=== PATIENT | female | born 1930 | race Caucasian/White ===

== ENCOUNTER 2016-08-13 05:56 | Inpatient (IN) | payer OTHER ==
[~2016-08-13] VITALS: Ht 170.2 cm; Wt 78.2 kg
[~2016-08-13 05:56] MED LIST: ACETAMINOPHEN-1 EAC1 PO; AMLODIPINE BESY10 MG PO; ASACOL400 MG PO; BACTRIM,SEPT1 TABLET PO; Bentyl PO; CARAFATE1 GM PO; CARAFATE100 MG/ML PO; CATAPRES0.2 MG PO; COZAAR100 MG PO; Carafate PO; Cipro PO; LIPITOR20 MG PO; LIPITOR40 MG PO; METAMUCIL PACKE1 PKT PO; METOPROLOL SUCC25 MG PO; METOPROLOL TART25 MG PO; MICROZIDE12.5 M1 PO; MIRALAX255 GM PO; Mylicon,Mylanta Gas, PO; NORVASC10 MG PO; OMEPRAZOLE40 M1 PO; Protonix PO; ROBINUL PO; Reglan PO; STOOL SOFTENER100 MG PO; ZOFRAN ODT4 MG PO; ZOFRAN4 MG PO
[2016-08-13 07:33] LABS: HEMATOCRIT 37.3 % (36.0-46.0); MCH 27.2 PG (29.0-34.0); MCHC 31.9 G/DL (30.0-36.0); MCV 85.4 FL (83-99); MEAN PLAT.VOLUME 9.7 uM^3 (9.5-12.4); PLATELET COUNT 375 K/uL (156-360); RBC DIS.WIDTH-CV 16.6 % (11.8-14.6); RBC DIS.WIDTH-SD 51.9 % (39-53); RED BLOOD COUNT 4.37 M/uL (3.80-5.20); WHITE BLOOD COUNT 9.5 K/uL (4.1-10.2)
[2016-08-13 08:18] LABS: ANION GAP 13 MEQ/L (2-14); CHLORIDE 104 MEQ/L (99-109); POTASSIUM 4.6 MEQ/L (3.7-5.4); SAMPLE HEMOLYSIS CHECK 0; SAMPLE ICTERIC CHECK 0; SAMPLE LIPEMIA CHECK 0; SODIUM 138 MEQ/L (136-147)
[2016-08-13 08:19] LABS: TOTAL BILIRUBIN 0.4 MG/DL (0.0-1.0)
[2016-08-13 08:23] LABS: ALKALINE PHOSPHATASE 80 IU/L (3-129); GFR ESTIMATE (CALCULATED) 50 mL/min/; GLUCOSE 92 mg/dL (70-99); UREA NITROGEN (BUN) 16 mg/dL (9-23)
[2016-08-13 08:26] LABS: TROP-I INTERPRETATION NEGATIVE; TROPONIN-I 0.04 ng/mL (0.0-0.30)
[2016-08-13 08:34] LABS: ANION GAP 15 MEQ/L (2-14); CHLORIDE 103 MEQ/L (99-109); POTASSIUM 4.6 MEQ/L (3.7-5.4); SAMPLE HEMOLYSIS CHECK 0; SAMPLE ICTERIC CHECK 0; SAMPLE LIPEMIA CHECK 0; SODIUM 140 MEQ/L (136-147)
[2016-08-13 08:39] LABS: GFR ESTIMATE (CALCULATED) 50 mL/min/; GLUCOSE 93 mg/dL (70-99); LIPASE 13 U/L (1.0-51.0); UREA NITROGEN (BUN) 16 mg/dL (9-23)
[2016-08-13 09:02] LABS: ADD MIUA? YES; BILIRUBIN NEGATIVE; BLOOD SMALL; COLOR STRAW ((YELLOW)); GLUCOSE (STRIP) NEGATIVE; KETONES 5; LEUKOCYTES TRACE; NITRITE NEGATIVE; PROTEIN (STRIP) NEGATIVE; SPECIFIC GRAVITY 1.006 (1.000-1.030); UROBILINOGEN 0.2 MG/DL (0.2-1.0)
[2016-08-13 09:16] LABS: BACTERIA RARE /HPF; EPITHELIAL CELLS RARE /HPF; MUCUS NONE SEEN /LPF; RED BLOOD CELLS NONE SEEN /HPF (0-5); UCUL ADDED? NO; UNCLASSIFIED CRYSTALS 1+ /HPF; WHITE BLOOD CELLS 0-5 /HPF (0-5)
[2016-08-13 10:15] LABS: TROP-I INTERPRETATION NEGATIVE; TROPONIN-I 0.04 ng/mL (0.0-0.30)
[2016-08-13] MEDS ORDERED: METAMUCIL POWD798 GM PO (12:33)
[2016-08-13] MEDS ORDERED: LOSARTAN POTAS100 MG PO (12:33)
[2016-08-13 15:09] LABS: INFLUENZA A VIRAL ANTIGEN NEGATIVE; INFLUENZA B VIRAL ANTIGEN NEGATIVE
[2016-08-13 16:26] VITALS: BP 134/64
[2016-08-13 23:06] VITALS: BP 129/65
[2016-08-14 07:11] LABS: INTERNAL CONTROL VALID? YES
[2016-08-14 08:16] VITALS: BP 142/72
[2016-08-14 16:24] VITALS: BP 146/67
[2016-08-14 23:58] VITALS: BP 141/70
[2016-08-15 07:45] VITALS: BP 159/73
[2016-08-15 11:20] LABS: HEMATOCRIT 33.4 % (36.0-46.0); MCH 26.4 PG (29.0-34.0); MCHC 30.5 G/DL (30.0-36.0); MCV 86.3 FL (83-99); MEAN PLAT.VOLUME 9.6 uM^3 (9.5-12.4); PLATELET COUNT 336 K/uL (156-360); RBC DIS.WIDTH-CV 17.6 % (11.8-14.6); RBC DIS.WIDTH-SD 55.3 % (39-53); RED BLOOD COUNT 3.87 M/uL (3.80-5.20); WHITE BLOOD COUNT 9.1 K/uL (4.1-10.2)
[2016-08-15 11:55] LABS: ALKALINE PHOSPHATASE 63 IU/L (3-129); ANION GAP 7 MEQ/L (2-14); CHLORIDE 108 MEQ/L (99-109); GFR ESTIMATE (CALCULATED) 56 mL/min/; GLUCOSE 105 mg/dL (70-99); SAMPLE HEMOLYSIS CHECK 0; SAMPLE ICTERIC CHECK 0; SAMPLE LIPEMIA CHECK 0; SODIUM 138 MEQ/L (136-147); UREA NITROGEN (BUN) 19 mg/dL (9-23)
[2016-08-15 11:59] LABS: TOTAL BILIRUBIN 0.3 MG/DL (0.0-1.0)
[2016-08-15] MEDS ORDERED: LEVAQUIN750 MG PO (12:21)
[2016-08-15] MEDS ORDERED: ADVAIR HFA120 INHALA IH (12:22)
[2016-08-15] MEDS ORDERED: VENTOLIN HFA18 GM IH (12:22)
[2016-08-15] MEDS ORDERED: BREO ELLIPTA I1 EACH IH (15:09)
== END 2016-08-15 16:57 | disposition home health service (06) | DRG 194 ==
LOC: EME → EDBD 05:56 → 5EAST 13:16 → EDOF 13:16 → 5EAST 15:37
PROVIDERS: Hospitalist; Physician Assistant Medical
DX: J18.9 Pneumonia, unspecified organism (principal); C34.92 Malignant neoplasm of unspecified part of left bronchus or lung; I10 Essential (primary) hypertension; K21.9 Gastro-esophageal reflux disease without esophagitis; E78.5 Hyperlipidemia, unspecified; Z66 Do not resuscitate; Z79.899 Other long term (current) drug therapy; Z92.3 Personal history of irradiation; G89.29 Other chronic pain; Z87.891 Personal history of nicotine dependence; K57.30 Diverticulosis of large intestine without perforation or abscess without bleeding; I25.10 Atherosclerotic heart disease of native coronary artery without angina pectoris
CPT/HCPCS: 71020; 71250; 74176; 80048; 80053; 81003; 83605; 83690; 84484; 85027; 87040; 87070; 87205; 87449; 87502; 93005; 94010; 94640; 94640 76; 94799; 99202; 99281; 99285; J1650; J1956; J2405; J7030

== ENCOUNTER 2016-10-17 15:45 | Inpatient (IN) | payer OTHER ==
[~2016-10-17] VITALS: Ht 170.2 cm; Wt 75.0 kg
[~2016-10-17 15:45] MED LIST changes: +ADVAIR HFA120 INHALA IH; +BREO ELLIPTA I1 EACH IH; +LEVAQUIN750 MG PO; +LOSARTAN POTAS100 MG PO; +METAMUCIL POWD798 GM PO; +VENTOLIN HFA18 GM IH
[2016-10-17 16:54] LABS: ADD MIUA? YES; BILIRUBIN NEGATIVE; BLOOD SMALL; COLOR YELLOW ((YELLOW)); GLUCOSE (STRIP) NEGATIVE; KETONES NEGATIVE; LEUKOCYTES NEGATIVE; NITRITE NEGATIVE; PROTEIN (STRIP) NEGATIVE; SPECIFIC GRAVITY 1.009 (1.000-1.030); UROBILINOGEN 0.2 MG/DL (0.2-1.0)
[2016-10-17 17:00] LABS: BACTERIA RARE /HPF; CALCIUM OXALATE CRYSTALS 2+ /HPF; EPITHELIAL CELLS 1+ /HPF; HYALINE CASTS 0-5 /LPF; MUCUS TRACE /LPF; RED BLOOD CELLS 0-5 /HPF (0-5); WHITE BLOOD CELLS 0-5 /HPF (0-5)
[2016-10-17 17:12] LABS: HEMATOCRIT 37.3 % (36.0-46.0); MCH 27.5 PG (29.0-34.0); MCHC 31.6 G/DL (30.0-36.0); MCV 86.9 FL (83-99); MEAN PLAT.VOLUME 9.1 uM^3 (9.5-12.4); PLATELET COUNT 420 K/uL (156-360); RBC DIS.WIDTH-CV 18.2 % (11.8-14.6); RBC DIS.WIDTH-SD 57.7 % (39-53); RED BLOOD COUNT 4.29 M/uL (3.80-5.20); WHITE BLOOD COUNT 9.1 K/uL (4.1-10.2)
[2016-10-17 17:20] LABS: CHLORIDE 105 mEq/L (99-109); POTASSIUM 4.9 mEq/L (3.7-5.4); SODIUM 137 mEq/L (136-147)
[2016-10-17 17:22] LABS: GLUCOSE 96 mg/dL (70-99)
[2016-10-17 17:23] LABS: ANION GAP 12 MEQ/L (2-14)
[2016-10-17 17:25] LABS: GFR ESTIMATE (CALCULATED) 50 mL/min/
[2016-10-17 17:26] LABS: UREA NITROGEN (BUN) 18 mg/dL (9-23)
[2016-10-18 00:23] VITALS: BP 144/80
[2016-10-18 04:00] VITALS: BP 146/71
[2016-10-18 06:52] LABS: EOSINOPHIL (%) 2.8 % (0-5); EOSINOPHIL COUNT 0.3 K/uL (0-0.3); IMMATURE GRANULOCYTE (%) 0.6 % (0.0-0.7); IMMATURE GRANULOCYTE COUNT 0.1 K/uL; INSTRUMENT ABS NEUTROPHIL CT 9.7 K/uL; LYMPHOCYTE COUNT 0.3 K/uL (1.0-2.8); MCHC 30.6 G/DL (30.0-36.0); MCV 88.5 FL (83-99); MEAN PLAT.VOLUME 9.2 uM^3 (9.5-12.4); MONOCYTE (%) 7.7 % (3-12); MONOCYTE COUNT 0.9 K/uL (0-0.8); NEUTROPHIL (%) 85.7 % (45-76); NEUTROPHIL COUNT 9.7 K/uL (1.8-6.4); PLATELET COUNT 370 K/uL (156-360); RBC DIS.WIDTH-CV 18.5 % (11.8-14.6); RBC DIS.WIDTH-SD 59.6 % (39-53); RED BLOOD COUNT 4.07 M/uL (3.80-5.20); WHITE BLOOD COUNT 11.4 K/uL (4.1-10.2)
[2016-10-18 07:18] LABS: ALKALINE PHOSPHATASE 68 IU/L (3-129); ANION GAP 11 MEQ/L (2-14); CHLORIDE 108 MEQ/L (99-109); GFR ESTIMATE (CALCULATED) 50 mL/min/; GLUCOSE 83 mg/dL (70-99); POTASSIUM 5.2 MEQ/L (3.7-5.4); SAMPLE HEMOLYSIS CHECK 0; SAMPLE ICTERIC CHECK 0; SAMPLE LIPEMIA CHECK 0; SODIUM 140 MEQ/L (136-147); TOTAL BILIRUBIN 0.4 MG/DL (0.0-1.0); UREA NITROGEN (BUN) 17 mg/dL (9-23)
[2016-10-18 08:12] VITALS: BP 163/86
[2016-10-18 11:15] VITALS: BP 164/86
[2016-10-18 16:14] VITALS: BP 156/75
[2016-10-18 20:16] VITALS: BP 141/66
[2016-10-19 00:30] VITALS: BP 152/88
[2016-10-19 01:34] LABS: APPEARANCE CLEAR/COLORLESS
[2016-10-19 02:21] LABS: RED CELL COUNT 8 /MM^3 (0-1); RED CELL DILUTION 1; WBC DILUTION 1; WHITE CELL RAW COUNT 42
[2016-10-19 02:22] LABS: WHITE CELL COUNT 23 /MM^3 (0-5)
[2016-10-19 02:27] LABS: CSF EOSINOPHILS 2 % (0-25); MONO RAW COUNT 95; MONONUCLEAR WBC'S 95 % (50-90); POLY RAW COUNT 3; POLYNUCLEAR WBC'S 3 % (0-3)
[2016-10-19 02:37] LABS: SPINAL FLD COMMENT OCCASIONAL MONOCYTES
[2016-10-19 04:00] VITALS: BP 163/87
[2016-10-19 08:06] LABS: INTERNAL CONTROL VALID? YES
[2016-10-19 08:24] VITALS: BP 164/91
[2016-10-19 11:37] VITALS: BP 166/90
[2016-10-19 16:56] VITALS: BP 117/74
[2016-10-19 20:31] VITALS: BP 120/76
[2016-10-20 00:05] VITALS: BP 129/78
[2016-10-20 11:30] VITALS: BP 168/72
[2016-10-20 15:23] VITALS: BP 170/74
[2016-10-21] VITALS: BP 150/95
[2016-10-21 07:50] VITALS: BP 184/89
[2016-10-21 08:41] LABS: POINT-OF-CARE METER ID UU14188625
[2016-10-21 16:07] VITALS: BP 118/82
[2016-10-21 17:15] LABS: HSV CSF Spec Source CSF (())
[2016-10-21 19:12] LABS: VARICELLA-ZOSTER VIRUS PCR+ <500 (<500); VZV SOURCE CSF (())
[2016-10-22] VITALS: BP 156/89
[2016-10-22 07:00] VITALS: BP 158/87
[2016-10-22 11:51] VITALS: BP 134/88
[2016-10-22 14:19] LABS: LYME DISEASE SEROLOGY SCREEN NEGATIVE (NEGATIVE)
[2016-10-22 14:43] VITALS: BP 160/88
[2016-10-22 22:08] VITALS: BP 168/89
[2016-10-22 22:59] VITALS: BP 148/80
[2016-10-23 07:42] VITALS: BP 149/69
[2016-10-23 15:30] VITALS: BP 143/79
[2016-10-23 20:42] VITALS: BP 177/85
[2016-10-23 23:42] VITALS: BP 141/70
[2016-10-24 08:04] VITALS: BP 182/83
[2016-10-24 09:30] VITALS: BP 159/68
[2016-10-24 10:13] LABS: HEMATOCRIT 35.9 % (36.0-46.0); MCHC 30.6 G/DL (30.0-36.0); MCV 88.2 FL (83-99); MEAN PLAT.VOLUME 9.4 uM^3 (9.5-12.4); NRBC (%) 0.2 /100 WBC (0-0); PLATELET COUNT 348 K/uL (156-360); RBC DIS.WIDTH-CV 19.8 % (11.8-14.6); RBC DIS.WIDTH-SD 61.5 % (39-53); RED BLOOD COUNT 4.07 M/uL (3.80-5.20); WHITE BLOOD COUNT 11.2 K/uL (4.1-10.2)
[2016-10-24 10:34] LABS: ANION GAP 8 MEQ/L (2-14); CHLORIDE 107 MEQ/L (99-109); GFR ESTIMATE (CALCULATED) 45 mL/min/; GLUCOSE 103 mg/dL (70-99); POTASSIUM 4.1 MEQ/L (3.7-5.4); SAMPLE HEMOLYSIS CHECK 0; SAMPLE ICTERIC CHECK 0; SAMPLE LIPEMIA CHECK 0; SODIUM 137 MEQ/L (136-147); UREA NITROGEN (BUN) 36 mg/dL (9-23)
[2016-10-24 15:18] VITALS: BP 172/95
[2016-10-24 17:04] VITALS: BP 163/92
[2016-10-25] VITALS (7 sets, daily range): BP systolic 150–193; BP diastolic 71–104
[2016-10-25 07:38] LABS: HEMATOCRIT 35.8 % (36.0-46.0); MCH 27.1 PG (29.0-34.0); MCV 87.5 FL (83-99); MEAN PLAT.VOLUME 9.8 uM^3 (9.5-12.4); NRBC (%) 0.3 /100 WBC (0-0); PLATELET COUNT 339 K/uL (156-360); RBC DIS.WIDTH-SD 61.7 % (39-53); RED BLOOD COUNT 4.09 M/uL (3.80-5.20); WHITE BLOOD COUNT 10.8 K/uL (4.1-10.2)
[2016-10-25 08:02] LABS: ANION GAP 7 MEQ/L (2-14); CHLORIDE 107 MEQ/L (99-109); GFR ESTIMATE (CALCULATED) 56 mL/min/; GLUCOSE 78 mg/dL (70-99); POTASSIUM 4.5 MEQ/L (3.7-5.4); SAMPLE HEMOLYSIS CHECK 0; SAMPLE ICTERIC CHECK 0; SAMPLE LIPEMIA CHECK 0; SODIUM 138 MEQ/L (136-147); UREA NITROGEN (BUN) 28 mg/dL (9-23)
[2016-10-25 08:09] LABS: ABS NEUTROPHIL COUNT 8.8; ANISOCYTOSIS 1+; ATYPICAL LYMPHOCYTE 0.9 %; BURR CELLS 1+; EOSINOPHIL ABS CT 0.1; EOSINOPHILS 0.9 % (0-5.0); INSTRUMENT ABS NEUTROPHIL CT 7.9 K/uL; LYMPHOCYTES 5.5 % (15.0-45.0); MACROCYTES 1+; MYELOCYTES 0.9 %; OVALOCYTES 1+; PLAT.SUFFICIENCY ADEQUATE; POIKILOCYTOSIS 2+; SEG.NEUTROPHILS 81.8 % (46.0-76.0); SMUDGE CELLS 6.4
[2016-10-26] VITALS: BP 122/81
[2016-10-26 08:31] VITALS: BP 136/80
[2016-10-26 08:40] LABS: HEMATOCRIT 36.7 % (36.0-46.0); MCH 27.5 PG (29.0-34.0); MCHC 31.3 G/DL (30.0-36.0); MCV 87.8 FL (83-99); MEAN PLAT.VOLUME 9.8 uM^3 (9.5-12.4); NRBC (%) 0.2 /100 WBC (0-0); PLATELET COUNT 323 K/uL (156-360); RBC DIS.WIDTH-CV 20.5 % (11.8-14.6); RBC DIS.WIDTH-SD 61.6 % (39-53); RED BLOOD COUNT 4.18 M/uL (3.80-5.20); WHITE BLOOD COUNT 10.7 K/uL (4.1-10.2)
[2016-10-26 09:01] LABS: ANION GAP 7 MEQ/L (2-14); CHLORIDE 106 MEQ/L (99-109); GFR ESTIMATE (CALCULATED) 50 mL/min/; GLUCOSE 88 mg/dL (70-99); POTASSIUM 4.7 MEQ/L (3.7-5.4); SAMPLE HEMOLYSIS CHECK 0; SAMPLE ICTERIC CHECK 0; SAMPLE LIPEMIA CHECK 0; SODIUM 137 MEQ/L (136-147); UREA NITROGEN (BUN) 27 mg/dL (9-23)
[2016-10-26] MEDS ORDERED: CITALOPRAM HBR10 MG PO (12:28)
[2016-10-26] MEDS ORDERED: CYCLOBENZAPRINE5 MG PO (12:28)
[2016-10-26] MEDS ORDERED: HYGROTON25 MG PO (12:28)
[2016-10-26] MEDS ORDERED: DOXYCYCLINE HY100 M3 PO (12:28)
== END 2016-10-26 13:52 | disposition home health service (06) | DRG 97 ==
LOC: EME 15:45 → 5SOUTH 22:03 → EDOF 22:03 → 5SOUTH 23:38
PROVIDERS: Emergency Medicine; Hospitalist; Internal Medicine; Internal Medicine Infectious Disease; Internal Medicine Medical Oncology
PROC: 009U3ZX Drainage of Spinal Canal, Percutaneous Approach, Diagnostic (ICD-10-PCS; principal; 2016-10-19)
DX: G03.0 Nonpyogenic meningitis (principal); J18.9 Pneumonia, unspecified organism; G93.41 Metabolic encephalopathy; Z87.891 Personal history of nicotine dependence; I10 Essential (primary) hypertension; C34.92 Malignant neoplasm of unspecified part of left bronchus or lung; C79.9 Secondary malignant neoplasm of unspecified site; D63.8 Anemia in other chronic diseases classified elsewhere; F32.9 Major depressive disorder, single episode, unspecified
CPT/HCPCS: 62270; 70450; 70553; 71010; 71020; 71250; 77002; 80048; 80053; 81003; 82533; 82565; 82607; 82945; 82948; 84145 90; 84157; 84443; 84481; 85025; 85027; 85048; 86618; 87040; 87070; 87086; 87205; 87449; 87498 90; 87529 90; 87799 90; 89051; 93005; 94640; 94799; 96413; 97530 GO; 99202; 99281; 99285; J0133; J0692; J1644; J1956; J2930; J7030; J7050; J9271

== ENCOUNTER 2017-04-19 09:20 | Emergency (ER) | payer OTHER ==
[~2017-04-19] VITALS: Ht 162.6 cm; Wt 81.8 kg
[~2017-04-19 09:20] MED LIST changes: +CITALOPRAM HBR10 MG PO; +CYCLOBENZAPRINE5 MG PO; +DOXYCYCLINE HY100 M3 PO; +HYGROTON25 MG PO
[2017-04-19 10:34] LABS: HEMATOCRIT 41.6 % (36.0-46.0); MCH 28.1 PG (29.0-34.0); MCHC 31.5 G/DL (30.0-36.0); MCV 89.3 FL (83-99); MEAN PLAT.VOLUME 9.3 uM^3 (9.5-12.4); PLATELET COUNT 276 K/uL (156-360); RBC DIS.WIDTH-CV 16.4 % (11.8-14.6); RBC DIS.WIDTH-SD 53.3 % (39-53); RED BLOOD COUNT 4.66 M/uL (3.80-5.20); WHITE BLOOD COUNT 8.9 K/uL (4.1-10.2)
[2017-04-19 10:46] LABS: CHLORIDE 105 mEq/L (99-109); POTASSIUM 5.5 mEq/L (3.7-5.4); SODIUM 135 mEq/L (136-147)
[2017-04-19 10:49] LABS: GLUCOSE 99 mg/dL (70-99)
[2017-04-19 10:50] LABS: ANION GAP 13 MEQ/L (2-14)
[2017-04-19 10:51] LABS: TOTAL BILIRUBIN 0.4 mg/dL (0.0-1.0)
[2017-04-19 10:52] LABS: ALKALINE PHOSPHATASE 75 IU/L (3-129); GFR ESTIMATE (CALCULATED) 41 mL/min/
[2017-04-19 10:53] LABS: UREA NITROGEN (BUN) 21 mg/dL (9-23)
[2017-04-19 12:05] LABS: ADD MIUA? NO; BILIRUBIN NEGATIVE; BLOOD NEGATIVE; COLOR STRAW ((YELLOW)); GLUCOSE (STRIP) NEGATIVE; KETONES NEGATIVE; LEUKOCYTES NEGATIVE; NITRITE NEGATIVE; PROTEIN (STRIP) NEGATIVE; SPECIFIC GRAVITY 1.005 (1.000-1.030); UCUL ADDED? NO; UROBILINOGEN 0.2 MG/DL (0.2-1.0)
[2017-04-19] MEDS ORDERED: BENTYL10 MG PO (12:09)
[2017-04-19 13:01] VITALS: BP 147/77
== END 2017-04-19 13:07 | disposition home or self-care (01) ==
LOC: EME 09:20
PROVIDERS: Nurse Practitioner Family
DX: R10.84 Generalized abdominal pain (principal); C34.90 Malignant neoplasm of unspecified part of unspecified bronchus or lung; E78.5 Hyperlipidemia, unspecified; I10 Essential (primary) hypertension; K21.9 Gastro-esophageal reflux disease without esophagitis; Z86.73 Personal history of transient ischemic attack (TIA), and cerebral infarction without residual deficits; Z87.891 Personal history of nicotine dependence
CPT/HCPCS: 74176; 80053; 81003; 85027; 99281; 99284; J7030